=== PATIENT | female | born 1995 | race Caucasian/White ===

== ENCOUNTER 2016-10-17 09:09 | Emergency (ER) | payer MEDICAID ==
[~2016-10-17] VITALS: Ht 162.6 cm; Wt 79.8 kg
[~2016-10-17 09:09] MED LIST: ACET325T14 PO; OXYC-302 PO; PREN1TAB60 PO
[2016-10-17 10:59] VITALS: BP 104/51
== END 2016-10-17 11:13 | disposition home or self-care (01) ==
LOC: ED 10:13
DX: O20.0 Threatened abortion (principal); Z3A.11 11 weeks gestation of pregnancy
CPT/HCPCS: 36415; 76801; 81003; 84702; 85025; 86901; 99285

== ENCOUNTER 2016-10-21 17:58 | Emergency (ER) | payer MEDICAID ==
[~2016-10-21] VITALS: Ht 162.6 cm; Wt 79.8 kg
[2016-10-21 18:12] VITALS: BP 123/83
[2016-10-21 18:56] LABS: BLOOD UREA NITROGEN 5 mg/dL (7-18)
[2016-10-21 19:04] LABS: HEMATOCRIT 39.7 % (34.6-47.8); HEMOGLOBIN 13.2 g/dL (11.7-16.4); WHITE BLOOD COUNT 7.2 x10^3/uL (4.5-13.2)
== END 2016-10-21 19:47 | disposition home or self-care (01) ==
LOC: ED 19:41
DX: O20.0 Threatened abortion (principal); Z3A.11 11 weeks gestation of pregnancy
CPT/HCPCS: 36415; 80048; 82040; 84702; 85025; 99284

== ENCOUNTER 2016-12-17 16:56 | Emergency (ER) | payer MEDICAID ==
[~2016-12-17] VITALS: Ht 162.6 cm; Wt 81.2 kg
[2016-12-17] MEDS ORDERED: SODIUM CHLORIDE FLUSH 10ML SYR IVF ONE (17:30)
[2016-12-17] MEDS ORDERED: ONDANSETRON 2MG/ML, 2ML IVPush ONE (17:30)
[2016-12-17] MEDS ORDERED: SODIUM CHLORIDE 0.9% 1,000ML IVBOLUS ONE (17:30)
[2016-12-17] MEDS ORDERED: PNV11TAB PO (17:33)
[2016-12-17] MEDS ORDERED: ONDANSETRON 2MG/ML, 2ML ONE (17:37)
[2016-12-17 17:48] LABS: HEMATOCRIT 37.2 % (34.6-47.8); HEMOGLOBIN 12.4 g/dL (11.7-16.4); WHITE BLOOD COUNT 7.1 x10^3/uL (4.5-13.2)
[2016-12-17 18:02] LABS: ASPARTATE AMINO TRANSFERASE 8 U/L (15-37); BLOOD UREA NITROGEN 4 mg/dL (7-18)
[2016-12-17 18:12] LABS: IS PT STATUS REG ER OR PRE ER? YES
[2016-12-17 19:44] VITALS: BP 105/54
== END 2016-12-17 19:47 | disposition home or self-care (01) ==
LOC: ED 18:24
DX: O99.612 Diseases of the digestive system complicating pregnancy, second trimester (principal); K92.89 Other specified diseases of the digestive system; Z3A.19 19 weeks gestation of pregnancy; R07.89 Other chest pain; K21.9 Gastro-esophageal reflux disease without esophagitis
CPT/HCPCS: 36415; 71010; 80053; 81001; 84484; 85025; 93005; 96361; 96374; 99285; J2405; J7030